=== PATIENT | male | born 1970 | race Caucasian/White ===

== ENCOUNTER 2016-12-07 17:45 | Emergency (ER) | payer OTHER ==
[~2016-12-07] VITALS: Ht 165.1 cm; Wt 64.9 kg
[2016-12-07 17:48] VITALS: BP 132/84
== END 2016-12-07 19:06 | disposition home or self-care (01) ==
LOC: ED 19:00
DX: Z72.9 Problem related to lifestyle, unspecified (principal); F31.9 Bipolar disorder, unspecified
CPT/HCPCS: 99283

== ENCOUNTER 2020-01-13 15:58 | Emergency (ER) | payer SELFPAY ==
[~2020-01-13] VITALS: Ht 165.1 cm; Wt 63.1 kg
[2020-01-13 16:10] VITALS: BP 137/99
--- NOTE | 2020-01-13 17:02 | NUR ---
BIOINFORMATICS COMPUTER SCIENTIST NOTE: PT ARRIVES TO ED SEEKING [facility] RESOURCES, PT MET WITH MOY GARIBAY WHO GAVE PT RESOURCES FOR [facility]. DC ORDERS RECEIVED. PT A&O, RESPS EVEN AND UNLABORED. PT AMBULATORY TO DC DESK WITH STEADY GAIT.
== END 2020-01-13 17:04 | disposition home or self-care (01) ==
LOC: ED 16:58
DX: Z00.00 Encounter for general adult medical examination without abnormal findings (principal)
CPT/HCPCS: 99281